=== PATIENT | male | born 1985 | race African-American/Black ===

== ENCOUNTER 2018-05-17 01:31 | Emergency (ER) | payer OTHER, MEDICAID ==
[2018-05-17] MEDS ORDERED: MIDAZOLAM HCL 50 MG/100 ML RTUINJ ONE (01:48)
[2018-05-17] MEDS ORDERED: MIDAZOLAM 2 MG/2 ML INJ ONE ×2 (01:52→02:02)
[2018-05-17] MEDS ORDERED: MIDAZOLAM HCL 50 MG/100 ML RTUINJ IV PRN (01:53)
--- NOTE | 2018-05-17 02:04 | ER Document Report ---
ED General - General Stated Complaint: TROUBLE BREATHING Notes: Patient is a 33-year-old male with a history of a previous brain tumor which was removed. He now has a HR PAYROLL COORDINATOR shunt in place. Streets via the father. Father says that tonight he started become dizzy and lightheaded. He felt as if he did not feel good. Father says sometimes this happens but usually the symptoms resolve very quickly. Tonight symptoms did not resolve and patient continue to progress to the point where he was unconscious and had very shallow breathing. When paramedics arrived patient was unresponsive and had what they described as extremely shallow and slow breathing which she described as almost agonal. They intubated the patient. Patient had pulses entire time. They did give him a little bit of Versed and fentanyl at time of intubation. They have not given any sedation medication since then. He is followed at [place] for the shunt. TRAVEL OUTSIDE OF THE [place] IN LAST 30 DAYS: No - Related Data Allergies/Adverse Reactions: No Known Allergies Allergy (Verified 05/17/18 04:16) Past Medical History - Social History Smoking Status: Never Smoker Frequency of alcohol use: None Drug Abuse: None Family History: Reviewed & Not Pertinent Malignancy Medical History: Reports Hx Brain Cancer Past Surgical History: Reports: Hx Abdominal Surgery - G-tube - Immunizations Hx Diphtheria, Pertussis, Tetanus Vaccination: Yes Review of Systems - Review of Systems -: Yes ROS unobtainable due to patient's medical condition - Patient is unresponsive. Physical Exam - Vital signs Vitals: Resp BP Pulse Ox 19 118/81 100 05/17/18 01:33 05/17/18 01:33 05/17/18 01:33 - Notes Notes: General Appearance: Well nourished, alert, cooperative, no acute distress, no obvious discomfort. Vitals: reviewed, See vital signs table. Head: no swelling or tenderness to the head Eyes: Pupils pinpoint likely related to the fentanyl the patient received. Mouth: No decreasd moisture Throat: Intubated Neck: Supple Lungs: No wheezing, No rales, No rhonci, No accessory muscle use, good air exchange bilaterally. Heart: Normal rate, Regular rythm, No murmur, no rub Abdomen: Normal BS, soft, No rigidity, No abdominal tenderness, No guarding, no rebound, no abdominal masses, no organomegaly Extremities: good pulses in all extremities, no swelling in the extremities, no edema. Skin: warm, dry, appropriate color, no rash Neuro: Patient has pinpoint pupils. He has no purposeful movement at this time. He is not taking breaths on his own. Course - Re-evaluation Re-evalutation: 05/17/18 02:04 After my initial immediate evaluation of the patient when he first got here we took him straight to CT scan of the CT scans head and neck. As we are getting him out of the CT scan he started to blink his eyes some. As a nurse's Saul to the trauma bay I did go and speak with the family. White female the room speaking to family the nurses inform me that he is starting have some purposeful movement. I went in the room and the patient's eyes are open and is looking around. When I say his name he looks over at me. He will wiggle his toes command. He will not move his upper extremities. Patient is not gagging on the tube but is obviously awake and aware of as being around him. I will get a little bit of Versed to help keep him comfortable while he is intubated. I am waiting for the read from the CT scan. Blood work has been ordered. Once results are back I will contact [facility] for transfer. 05/17/18 03:[address] Sung, neurosurgeon at [facility]. He agrees to accept the patient for transfer. He has no further recommendations at this time. Pateint's SpO2 has remained between 88 and 94%. Patient's father says his SpO2 is chronically low and that this is his normal. I tried to obtain an ABG but am unsuccessful. I gave a dose of decadron. I have started unasyn being that CXR shows evidence of aspiration. EKG shows some ST elevation, but no troponin elevation. All elevation is concave up. Findings on EKG can be caused by Pericaditis but patient's history is not consistent with that. Patient continues to have some occasional purpose movement requiring some sedation. 05/17/18 03:19 05/17/18 04:00 I did request air for transport however it is to foggy and no one is able to fly. I have been told that a critical care truck transport will be here in 2 and half hours. 05/17/18 04:02 Patient continues to do well on the vent. He does have some purposeful movement. Blood pressures remained stable. Heart rate is stable. We will continue closely monitor the patient until transported. Pupils remain pinpoint and equal in size. 05/17/18 04:13 05/17/18 05:31 Reevaluate the patient. He continues to remain comfortable on the vent. He will occasionally move his legs on his own. Pupils remain equal. 05/17/18 05:40 Transport team has arrived. I reevaluated the patient again. Patient remained stable for transport. Answered family and transport team's questions. Patient stable for transport. Dictation of this chart was performed using voice recognition software; therefore, there may be some unintended grammatical errors. - Vital Signs Vital signs: Temp Pulse Resp BP Pulse Ox 14 138/100 H 92 05/17/18 05:30 05/17/18 05:30 05/17/18 05:30 - Laboratory Result Diagrams: 05/17/18 02:25 05/17/18 01:55 Laboratory results interpreted by me: 05/17/18 05/17/18 05/17/18 01:55 02:25 03:20 MCV 102 H MCH 34.3 H Plt Count 104 L Seg Neutrophils % 82.1 H Lymphocytes % 5.8 L Eosinophils % 6.9 H Absolute Lymphocytes 0.3 L VBG pH 7.47 H VBG pCO2 64.6 H VBG HCO3 45.5 H Chloride 94 L Carbon Dioxide 37 H BUN 31 H Glucose 149 H AST 75 H Total Protein 8.4 H Urine Protein Urine Ascorbic Acid 05/17/18 03:25 MCV MCH Plt Count Seg Neutrophils % Lymphocytes % Eosinophils % Absolute Lymphocytes VBG pH VBG pCO2 VBG HCO3 Chloride Carbon Dioxide BUN Glucose AST Total Protein Urine Protein 100 H Urine Ascorbic Acid 40 H - EKG Interpretation by Me Additional EKG results interpreted by me: 05/17/18 02:10 EKG is reviewed and interpreted by me. EKG shows sinus rhythm with a rate of 87 bpm. Patient has almost diffuse concave up ST segment elevation. Looks very similar to the pericarditis. There is a bit of IA depression. No reciprocal ST segment depression except for just mild ST segment depression in leads aVR. These changes are new in comparison to old EKG from January 07, 2014. IA interval, QRS duration, QTc intervals are within normal range. Critical Care Note - Critical Care Note Total time excluding time spent on procedures (mins): 45 Comments: Local care time for this patient not including times spent on procedures was approximately 45 minutes due to frequent re-evaluations and management of vent and sedation. Frequent neurologic exams. Discharge - Discharge Clinical Impression: Unresponsive, Acute electrocardiogram changes, HR PAYROLL COORDINATOR (ventriculoperitoneal) shunt status Syncope Qualifiers: Syncope type: unspecified Qualified Code(s): R55 - Syncope and collapse Aspiration into airway Qualifiers: Encounter type: initial encounter Qualified Code(s): T17.908A - Unspecified foreign body in respiratory tract, part unspecified causing other injury, initial encounter Condition: Stable Disposition: [place] Referrals: FELICITAS MORALES MD [ACTIVE STAFF] - Follow up as needed
--- NOTE | 2018-05-17 02:06 | RADIOLOGY REPORT (SQ) ---
CLINICAL HISTORY: unresponsive, found down COMPARISON: None. TECHNIQUE: CT CERVICAL SPINE WITHOUT IV CONTRAST on 05/17/2018 1:35 AM HOGSHEAD OPENER This exam was performed according to our departmental dose-optimization program, which includes automated exposure control, adjustment of the mA and/or kV according to patient size and/or use of iterative reconstruction technique. FINDINGS: There is no acute fracture. Alignment is anatomic. There are ventral osteophytes at the C5-6 disc. There are postoperative changes of the occipital calvarium. There appears to have been resection of the posterior margins of C1 and C2. Vertebral body heights are preserved. Soft tissues are unremarkable. IMPRESSION: Mild degenerative and postoperative changes. No acute fracture.
--- NOTE | 2018-05-17 02:18 | RADIOLOGY REPORT (SQ) ---
EXAM DESCRIPTION: XR CHEST 1 VIEW COMPLETED DATE/TME: 05/17/2018 01:35 CLINICAL HISTORY: 33 years, Male, post intubation COMPARISON: 01/08/2014 NUMBER OF VIEWS: One TECHNIQUE: AP view of the chest LIMITATIONS: None. FINDINGS: The endotracheal tube terminates approximately 2 cm above the klever. There are bibasilar airspace opacities. No large pleural effusion or pneumothorax. The heart is normal in size. A DUPLICATOR PUNCH OPERATOR shunt catheter tracks along the right hemithorax. IMPRESSION: Satisfactory position of the endotracheal tube. Bibasilar airspace opacities which may represent aspiration or pneumonia. 2011 [employer]- All Rights Reserved
--- NOTE | 2018-05-17 02:19 | RADIOLOGY REPORT (SQ) ---
EXAM DESCRIPTION: CT HEAD WITHOUT IV CONTRAST COMPLETED DATE/TME: 05/17/2018 01:35 CLINICAL HISTORY: 33 years Male, unresponsive COMPARISON: None. TECHNIQUE: No contrast. Coronal and sagittal reformat. This exam was performed according to our departmental dose-optimization program, which includes automated exposure control, adjustment of the mA and/or kV according to patient size and/or use of iterative reconstruction technique. Limitation: Position. FINDINGS: No hemorrhage. Moderate right frontal encephalomalacia territory of the right middle cerebral artery. Small ventricular system. Right frontal ventricular catheter tip at the expected interventricular foramen 0.6 cm well-defined indeterminate calcification of the right paracentral posterior fossa probably involves the right cerebellar lobe may indicate a cavernous malformation or other neoplasm, surgical clips at the posterior cranial base, partial occipital craniotomy and partial resection/absence of the posterior ring at C1 and C2 of indeterminate age partially imaged. No mass, mass effect, or midline shift. Endotracheal tube partially imaged. Small right sphenoid mucocele. Brain and extra-axial structures appear otherwise intact. IMPRESSION: 1. Small ventricles. Ventriculostomy catheter. 2. Right frontal infarct. 3. Partial resection of the occipital skull and posterior C1 and C2 lamina, partially imaged. 4. 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 Cannot exclude other neoplasm. Recommend comparison with prior exams or routine contrast MRI of the brain. 5. Intubated.
[2018-05-17 02:32] LABS: ALANINE AMINOTRANSFERASE 44 U/L (21-72); ALBUMIN 3.9 g/dL (3.5-5.0); ALKALINE PHOSPHATASE 94 U/L (38-126); ANION GAP 12 (5-19); ASPARTATE AMINO TRANSFERASE 75 U/L (17-59); BILIRUBIN,DIRECT 0.3 mg/dL (0.0-0.4); BILIRUBIN,TOTAL 0.5 mg/dL (0.2-1.3); BLOOD UREA NITROGEN 31 mg/dL (7-20); CALCIUM 10.2 mg/dL (8.4-10.2); CARBON DIOXIDE 37 mmol/L (22-30); CHLORIDE 94 mmol/L (98-107); GLUCOSE 149 mg/dL (75-110); POTASSIUM 4.9 mmol/L (3.6-5.0); SODIUM 143.2 mmol/L (137-145); TOTAL PROTEIN 8.4 g/dL (6.3-8.2)
--- NOTE | 2018-05-17 02:39 | RADIOLOGY REPORT (SQ) ---
EXAM DESCRIPTION: XR ABDOMEN 1 VIEW (KUB) COMPLETED DATE/TME: 05/17/2018 01:55 CLINICAL HISTORY: 33 years Male, shunt, NG tube placement COMPARISON: None. NUMBER OF VIEWS/TECHNIQUE: 2 FINDINGS: Tip of a presumed enteric tube is seen at the level of the distal esophagus; consider advancement/replacement. Intestinal gas pattern is within normal limits. Moderate nonspecific gaseous prominence throughout the bowel. Peritoneal catheter tip at the right paracentral lateral abdomen. No suspicious calcification. Grossly intact skeletal structures. IMPRESSION: Tip of a presumed enteric tube is seen at the level of the distal esophagus; consider advancement/replacement.
[2018-05-17 02:40] LABS: ABSOLUTE EOSINOPHILS # (AUTO) 0.3 10^3/uL (0.0-0.6); ABSOLUTE LYMPHOCYTES (AUTO) 0.3 10^3/uL (0.5-4.7); ABSOLUTE MONOCYTES (AUTO) 0.2 10^3/uL (0.1-1.4); ABSOLUTE NEUT (AUTO) 3.9 10^3/uL (1.7-8.2); BASOPHILS % (AUTO) 0.2 % (0-2); EOSINOPHILS % (AUTO) 6.9 % (0-6); HEMATOCRIT 46.7 % (37.9-51.0); HEMOGLOBIN 15.8 g/dL (13.5-17.0); LYMPHOCYTES % (AUTO) 5.8 % (13-45); MEAN CORPUSCULAR HEMOGLOBIN 34.3 pg (27.0-33.4); MEAN CORPUSCULAR HGB CONC 33.8 g/dL (32.0-36.0); MEAN CORPUSCULAR VOLUME 102 fl (80-97); PLATELET COUNT 104 10^3/uL (150-450); RED CELL DISTRIBUTION WIDTH 13.5 % (11.5-14.0); SEGMENTED NEUTROPHILS % (AUTO) 82.1 % (42-78); TOTAL CELLS COUNTED % (AUTO) 100 %; WHITE BLOOD COUNT 4.8 10^3/uL (4.0-10.5)
[2018-05-17] MEDS ORDERED: DEXAMETHASONE SOD PHOS INJ 10 MG/1 ML VIAL IV ONE (02:43)
[2018-05-17] MEDS ORDERED: AMPICILLIN SOD/SULBACTAM 3 GM VIAL IV ONE (02:54)
[2018-05-17] MEDS ORDERED: MIDAZOLAM 2 MG/2 ML INJ IV ONE ×3 (03:30→03:31)
[2018-05-17 03:37] LABS: VENOUS BLOOD BASE EXCESS 17.7 mmol/L; VENOUS BLOOD HCO3 45.5 mmol/L (20-32); VENOUS BLOOD PCO2 64.6 mmHg (35-63); VENOUS BLOOD PH 7.47 (7.30-7.42)
[2018-05-17 03:56] LABS: APPEARANCE,URINE CLOUDY; BILIRUBIN,URINE NEGATIVE (NEGATIVE); COLOR,URINE YELLOW; GLUCOSE, URINE NEGATIVE (NEGATIVE); KETONES,URINE NEGATIVE (NEGATIVE); LEUKOCYTE ESTERASE,URINE NEGATIVE (NEGATIVE); NITRITE,URINE NEGATIVE (NEGATIVE); PROTEIN,URINE 100 mg/dL (NEGATIVE); URINE SPECIFIC GRAVITY 1.012; UROBILINOGEN,URINE NEGATIVE mg/dL (<2.0)
[2018-05-17 05:37] VITALS: BP 138/100
[2018-05-17] MEDS ORDERED: FENTANYL CITRATE INJ/PF 100 MCG/2 ML AMPUL IV ONE (05:42)
--- NOTE | 2018-05-17 14:00 | EKG REPORT ---
SEVERITY:- ABNORMAL ECG - SINUS RHYTHM ST ELEVATION SUGGESTS PERICARDITIS : Confirmed by: Sherin Sommer MD 17-May-2018 13:59:59
== END 2018-05-17 06:13 | disposition short-term general hospital (02) ==
LOC: ER 01:31
DX: R94.31 Abnormal electrocardiogram [ECG] [EKG] (principal); R06.9 Unspecified abnormalities of breathing; R55 Syncope and collapse; T17.900A Unspecified foreign body in respiratory tract, part unspecified causing asphyxiation, initial encounter; X58.XXXA Exposure to other specified factors, initial encounter; Y92.239 Unspecified place in hospital as the place of occurrence of the external cause; Z85.841 Personal history of malignant neoplasm of brain; Z98.2 Presence of cerebrospinal fluid drainage device
CPT/HCPCS: 93005; 99291; 51702; 96375; 96365; 36415; 85025; 80053; 81001; 84484; 82803; 71045; 74018; 70450; 72125; 94660; 93010; J2250 ×2; J3010; J0295; J1100; 82962

== ENCOUNTER 2018-09-25 13:52 | Emergency (ER) | payer OTHER, MEDICAID ==
--- NOTE | 2018-09-25 14:15 | ER Document Report ---
ED Medical Screen (RME) - General Chief Complaint: Displaced G-tube Stated Complaint: G TUBE COMING OUT Time Seen by Provider: 09/25/18 14:11 Primary Care Provider: NAHUM DYE MD [Primary Care Provider] - Follow up as needed Mode of Arrival: Wheelchair Information source: Patient, Relative Notes: Patient is a 33-year-old male who presents to the ED with his parents. Patient has a JG tube into his left abdomen that has become partially dislodged. Parents report this happened this morning. The balloon part of the tubing is exposed however there is still part of the tube in place. Patient and family deny any other symptoms to include recent illness, fever or any other complaints today. He is seen by Dr. Orozco. The tube was placed at [place]. I have greeted and performed a rapid initial assessment of this patient. A comprehensive ED assessment and evaluation of the patient, analysis of test results and completion of the medical decision making process will be conducted by additional ED providers. Dictation of this chart was performed using voice recognition software; therefore, there may be some unintended grammatical errors. TRAVEL OUTSIDE OF THE [place] IN LAST 30 DAYS: No - Related Data Allergies/Adverse Reactions: No Known Allergies Allergy (Verified 05/17/18 04:16) Past Medical History Renal/ Medical History: Denies: Hx Peritoneal Dialysis Malignancy Medical History: Reports Hx Brain Cancer Past Surgical History: Reports: Hx Abdominal Surgery - G-tube - Immunizations Hx Diphtheria, Pertussis, Tetanus Vaccination: Yes Doctor's Discharge - Discharge Referrals: NAHUM DYE MD [Primary Care Provider] - Follow up as needed
--- NOTE | 2018-09-25 15:17 | ER Document Report ---
ED GI/ - General Chief Complaint: Displaced G-tube Stated Complaint: G TUBE COMING OUT Time Seen by Provider: 09/25/18 14:11 Primary Care Provider: NAHUM DYE MD [Primary Care Provider] - Follow up as needed Mode of Arrival: Wheelchair Notes: 33-year-old male to emergency department chief complaint of feeding tube fell out. Patient has some brainstem glioma. Had feeding tube placed in May. Seems to have come out today. Placed by [facility]. TRAVEL OUTSIDE OF THE [place] IN LAST 30 DAYS: No - HPI Timing/Duration: Gradual Quality of pain: No pain Severity at maximum: Mild Severity in ED: Mild Pain Level: Denies - Related Data Allergies/Adverse Reactions: No Known Allergies Allergy (Verified 05/17/18 04:16) Past Medical History - General Information source: Patient, Relative - Social History Smoking Status: Unknown if Ever Smoked Frequency of alcohol use: None Drug Abuse: None Lives with: Parents Family History: Reviewed & Not Pertinent Patient has suicidal ideation: No Patient has homicidal ideation: No Renal/ Medical History: Denies: Hx Peritoneal Dialysis Malignancy Medical History: Reports Hx Brain Cancer Past Surgical History: Reports: Hx Abdominal Surgery - G-tube - Immunizations Hx Diphtheria, Pertussis, Tetanus Vaccination: Yes Review of Systems - Review of Systems Notes: Constitutional: denies: Chills, Diaphoresis, Fever, Malaise, Weakness EENT: denies: Eye discharge, Blurred vision, Tearing, Double vision, Nose congestion, Nose discharge, Throat swelling, Mouth pain Cardiovascular: denies: Palpitations, Heart racing, Orthopnea, Dyspnea, Chest pain Respiratory: denies: Cough, Hurts to breathe, Wheezing, Shortness of breath Gastrointestinal: denies: Abdominal pain, Diarrhea, Nausea, Vomiting, Black s tools, bright red blood in stool. Feeding tube issues reported. Genitourinary: denies: Burning, Dysuria, Discharge, Frequency, Flank pain, Hematuria Musculoskeletal: denies: Joint pain, Joint swelling, Muscle pain, Muscle stiffness, back pain Hematologic/Lymphatic: denies: Anemia, Easy bleeding, Easy bruising, Blood clots Neurological/Psychological: Sequelae of prior brain tumor and sequela of stroke. Left upper extremity and left lower extremity weakness. Can move the upper and lower extremities. Mild difficulty with speech. Skin: No lesions, no masses, no skin breakdown, no abscesses Physical Exam - Vital signs Interpretation: Normal - General General appearance: Appears well, Alert - HEENT Head: Normocephalic, Atraumatic Eyes: Normal Pupils: PERRL Neck: Other - Anterior neck scars from prior tracheostomy. - Respiratory Respiratory status: No respiratory distress Chest status: Nontender Breath sounds: Normal Chest palpation: Normal - Cardiovascular Rhythm: Regular Heart sounds: Normal auscultation Murmur: No - Abdominal Inspection: Normal, Other - There is a JG tube partially inserted through the abdomen. The balloon appears to be outside the skin. The JG tube site is clean dry and intact. No signs of infection. Distension: No distension Bowel sounds: Normal Tenderness: Nontender Organomegaly: No organomegaly - Extremities General upper extremity: Normal inspection, Nontender, Normal strength - In the right upper extremity, decreased strength in the left upper extremity. General lower extremity: Normal inspection, Nontender, Other - Normal strength in the right lower extremity, decreased strength in the left lower extremity - Neurological Cognition: Normal Orientation: AAOx4 [place] Coma Scale Eye Opening: Spontaneous [place] Coma Scale Verbal: Oriented [place] Coma Scale Motor: Obeys Commands [place] Coma Scale Total: 15 Speech: Dysarthria, Expressive aphasia - Psychological Associated symptoms: Normal affect, Normal mood - Skin Skin Temperature: Warm Skin Moisture: Dry Skin Color: Normal Course - Re-evaluation Re-evalutation: 09/25/18 16:03 The balloon was deflated and then reinflated with 7 mL's of normal saline. The balloon did not appear to hold. At that time the tube was lubricated. The balloon was deflated and then inserted back into the abdomen. The balloon was inflated without difficulty. Patient sent to radiology for evaluation. 09/25/18 16:36 Feeding tube placement performed. Radiology says tubes in good position. Will DC at this time. Discharge - Discharge Clinical Impression: Encounter for feeding tube placement Condition: Good Disposition: HOME, SELF-CARE Instructions: Transdermal Gastric Tube Placement ([facility]) Referrals: NAHUM DYE MD [Primary Care Provider] - Follow up as needed
--- NOTE | 2018-09-25 16:52 | RADIOLOGY REPORT (SQ) ---
EXAM DESCRIPTION: INJECT EXISTING/TUBE PLACEMENT; NOT FOR OR FLUORO TO 1 HR COMPLETED DATE/TIME: 09/25/2018 4:10 pm REASON FOR STUDY: jg tube check; TUBE CHECK COMPARISON: KUB 05/17/2018 FLUOROSCOPY TIME: 1.1 minutes 11 digital fluoroscopic images saved to PACS. TECHNIQUE: Injection of contrast through existing catheter. Fluoroscopic spot films saved to PACS d emonstrating final catheter position. LIMITATIONS: None. FINDINGS: Patient has a GJ tube in place which was manipulated by the emergency room physician. Con trast was injected to confirm GJ tube tip placement. Initial contrast injection of 15 mL of Omnipaque 300 was performed through the jejunal port. The J-t ube tip within the jejunum. Contrast flows from the tube tip into small bowel loops which are nondil ated. 15 mL of Omnipaque 300 was injected into the gastrostomy portion of the 2. There is filling of the g astric antrum and flow of contrast out the pylorus into the duodenum. Duodenum normal caliber. IMPRESSION: Gastrojejunostomy tube in good positioning COMMENT: Quality ID [id number]: Final reports for procedures using fluoroscopy that document radiation exp osure indices, or exposure time and number of fluorographic images (if radiation exposure indices are not available) TECHNICAL DOCUMENTATION: JOB ID: [id number] [employer]- All Rights Reserved Reading location - IP/workstation name: [email or web address]
[2018-09-25 16:58] VITALS: BP 104/55
== END 2018-09-25 17:07 | disposition home or self-care (01) ==
LOC: ER 13:52
DX: Z43.1 Encounter for attention to gastrostomy (principal)
CPT/HCPCS: 49465; 76000; 99283

== ENCOUNTER 2019-05-15 16:19 | Emergency (ER) | payer OTHER, MEDICAID ==
--- NOTE | 2019-05-15 16:31 | ER Document Report ---
ED Medical Screen (RME) - General Chief Complaint: Displaced G-tube Stated Complaint: G-TUBE ISSUE Time Seen by Provider: 05/15/19 16:22 Primary Care Provider: NAHUM DYE MD [Primary Care Provider] - Follow up as needed Mode of Arrival: Wheelchair Information source: Relative Notes: 34-year-old male presented to ED for displacement of his G-tube. According to the family member his G-tube is completely out and needs to be replaced. Family members who is with him states that he uses oxygen when he goes to sleep due to his sats normally being in the 70s. With a O2 checked on his earlobe I was able to get this set up to 94%. He was on room air with a sat at 94%. Mother states he had a G-tube for eating when he was 12 years old he was able to eat for a wh ile and then in June of this year they replaced the G-tube because of an aspiration issue and he is now using the G-tube again. He accidentally pulled the G-tube out just before coming into the emergency room. He has a 18 [place] G-tube with a 6 mm balloon that the father has brought in a bag with him. He states he is not in any pain at this time. I have greeted and performed a rapid initial assessment of this patient. A comprehensive ED assessment and evaluation of the patient, analysis of test results and completion of medical decision making process will be conducted by an additional ED providers. TRAVEL OUTSIDE OF THE [place] IN LAST 30 DAYS: No - Related Data Allergies/Adverse Reactions: No Known Allergies Allergy (Verified 05/17/18 04:16) Past Medical History Renal/ Medical History: Denies: Hx Peritoneal Dialysis Malignancy Medical History: Reports Hx Brain Cancer Past Surgical History: Reports: Hx Abdominal Surgery - G-tube - Immunizations Hx Diphtheria, Pertussis, Tetanus Vaccination: Yes Doctor's Discharge - Discharge Referrals: NAHUM DYE MD [Primary Care Provider] - Follow up as needed
--- NOTE | 2019-05-15 16:38 | ER Document Report ---
ED General - General Chief Complaint: Displaced G-tube Stated Complaint: G-TUBE ISSUE Time Seen by Provider: 05/15/19 16:22 Primary Care Provider: NAHUM DYE MD [Primary Care Provider] - Follow up as needed Mode of Arrival: Wheelchair Information source: Patient, Parent TRAVEL OUTSIDE OF THE [place] IN LAST 30 DAYS: No - HPI Notes: 34 male bib by dad, ambulatory, today immediately after his G tube (initially created almost yr ago-jul 11) was dislodged they think it was hung up on clothing. pt denies pain. they deny any other recent revisions or issues w/ g tube and feels. reportedly initially had G-J tube at 12 y/a for aspiration issues, but modified to Gastric only tube for cont feeding)--does not supplement w/ po intake at all since 12 y/o. deny any changes near pct site of tube such as swelling, redness pain. no wt loss or gain or difficulty w/ feeds. dad has watched videos before but hasn't really been educated on how to replace the tube. - Related Data Allergies/Adverse Reactions: No Known Allergies Allergy (Verified 05/15/19 17:50) Past Medical History - General Information source: Relative - Social History Smoking Status: Never Smoker Chew tobacco use (# tins/day): No Frequency of alcohol use: None Drug Abuse: None Family History: Reviewed & Not Pertinent Patient has suicidal ideation: No Patient has homicidal ideation: No Renal/ Medical History: Denies: Hx Peritoneal Dialysis Malignancy Medical History: Reports Hx Brain Cancer Past Surgical History: Reports: Hx Abdominal Surgery - G-tube - Immunizations Hx Diphtheria, Pertussis, Tetanus Vaccination: Yes Review of Systems - Review of Systems Constitutional: No symptoms reported EENT: No symptoms reported Cardiovascular: No symptoms reported Respiratory: No symptoms reported Gastrointestinal: No symptoms reported Genitourinary: No symptoms reported Male Genitourinary: No symptoms reported Musculoskeletal: No symptoms reported Skin: No symptoms reported Hematologic/Lymphatic: No symptoms reported Neurological/Psychological: No symptoms reported Physical Exam - Vital signs Vitals: Temp Pulse Resp BP Pulse Ox 98.0 F 88 20 94/63 L 93 05/15/19 16:27 05/15/19 16:27 05/15/19 16:27 05/15/19 16:27 05/15/19 16:27 Interpretation: Normal - Notes Notes: have brought w/ them 18F [employer] G tube. appears intact w/o damage. - General General appearance: Appears well, Alert In distress: None - HEENT Head: Normocephalic, Atraumatic Eyes: Normal. No: Pale conjunctiva, Scleral icterus Conjunctiva: Normal. No: Injected, Purulent discharge Pupils: PERRL Pharynx: Other - does have longstanding per dad/pt difficulty w/ phonation. difficulty to understand. - Respiratory Respiratory status: No respiratory distress Chest status: Nontender Breath sounds: Normal Chest palpation: Normal - Cardiovascular Rhythm: Regular Heart sounds: Normal auscultation Murmur: No - Abdominal Inspection: Normal, Other - pct insertion site at few cm L and few cm caudal to umbilicus w/o induration/drainage/redness/warmth, nontender around area. Distension: No distension Bowel sounds: Normal Tenderness: Nontender. No: Guarding, Rebound Organomegaly: No organomegaly - Back Back: Normal, Nontender - Extremities General upper extremity: Normal inspection, Nontender, Normal color, Normal ROM, Normal temperature General lower extremity: Normal inspection, Nontender, Normal color, Normal ROM, Normal temperature, Normal weight bearing. No: Iesha's sign - Neurological Neuro grossly intact: Yes Cognition: Normal Orientation: AAOx4 Dalia Coma Scale Eye Opening: Spontaneous Dalia Coma Scale Verbal: Oriented [place] Coma Scale Motor: Obeys Commands Dalia Coma Scale Total: 15 Speech: Normal Motor strength normal: LUE, RUE, LLE, RLE Sensory: Normal - Psychological Associated symptoms: Normal affect, Normal mood - Skin Skin Temperature: Warm Skin Moisture: Dry Skin Color: Normal Course - Re-evaluation Re-evalutation: 05/25/19 17:30 were able to find exact same type of 18F g tube after initialy examined pt. i was ultimately delayed in starting procedure 2/2 critical patient arrival. therefore at time started procedure was ~4 hr s/p initially dislodged. see procedure note for details. ultimately at most superficial aspect of tract couldn't advance 18F tube. therefore placed 14F [employer]. tolerated procedure well, orderd kub w/ gastroffin to confirm. after placement per [facility] support [facility] director's instructions filled balloon w/ sterile water 6mm. tube secure. did try to swap this at this point for the 16F as closer to his initial tube size, but still at initial segment unagle to advance. instructed call pcp first thing to alert we have downsized by two sizes to 14 F since there was some delay in replacing. XR study shows tip of tubing in stomach and dye filling stomach. instructed dad ok to use for feeding. pt still denying any pain, 05/25/19 17:31 - Vital Signs Vital signs: Temp Pulse Resp BP Pulse Ox 97.8 F 106 H 20 119/66 92 05/15/19 21:03 05/15/19 21:03 05/15/19 16:27 05/15/19 21:03 05/15/19 21:03 Procedures - Additional Procedures Gastric tube replacement Additional Procedures: Gastric tube replacement - checked integrity of balloon w/ rec volume (6mm) sterile water then deflated. couldn't advance the 18F at most superficial aspect of tract w/ slow firm twisting, pressure. checked balloon of 14F G tube also in good condition, this after a minute or so did advance through intial cm w/ some resistance then easily through remainder of tract. aspirated what appeared to be gastric contents. RN found litmus paper said "pH 1". therefore ordered kub w/ gastrograffin. this showed tip and dye in stomach. prior to this study did try going up one size to 16F, still like w/ 18F, unable to advance at most superficial aspect, therefore replaced 14F w/o diffiulty. was secure /not loose at skin, and not moving past balloon at skin inflated w/ 5mm sterile water per [facility] support [facility] director instructions. Discharge - Discharge Clinical Impression: Gastrojejunostomy tube dislodgement Condition: Good Disposition: HOME, SELF-CARE Additional Instructions: Please call primary care doctor tomorrow to discuss that we placed a 14 Uzbek G-tube here in the emergency department given that there was about 4 hours between the time it was displaced and when ER doctor was able to replace it. Referrals: NAHUM DYE MD [Primary Care Provider] - Follow up as needed
[2019-05-15 21:04] VITALS: BP 119/66
--- NOTE | 2019-05-15 21:06 | RADIOLOGY REPORT (SQ) ---
EXAM DESCRIPTION: [facility]: XR ABDOMEN 1 VIEW (KUB) CLINICAL HISTORY: 34 years Male, check g tube COMPARISON: None. FINDINGS: Bowel gas pattern is within normal limits, with no significant distention. No pneumatosis. Shunt tubing terminates in the right upper quadrant, unchanged. Gastrostomy is noted, tip in the stomach. There is contrast material in the stomach. No suspicious calcifications. Bony structures are unremarkable. IMPRESSION: 1. Gastrostomy tube tip in the stomach. No extravasation. 2. No bowel distention.
== END 2019-05-15 21:12 | disposition home or self-care (01) ==
LOC: ER 16:19
DX: Z43.1 Encounter for attention to gastrostomy (principal)
CPT/HCPCS: 74018; 99282

== ENCOUNTER 2019-05-16 21:51 | Emergency (ER) | payer OTHER, MEDICAID ==
--- NOTE | 2019-05-16 23:16 | ER Document Report ---
ED Fall - General Chief Complaint: Fall Stated Complaint: FALL/HEAD PAIN Time Seen by Provider: 05/16/19 22:37 Primary Care Provider: NAHUM DYE MD [Primary Care Provider] - Follow up as needed Notes: This 34-year-old man presents to the emergency department with a history of a fall from his chair tonight injuring his forehead. He denies loss of consciousness or neck pain. He does have a large area of swelling in the mid forehead area and ecchymosis under the right eye. 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 He has had a history of aspiration, COFFEE [employer]ENDER shunt, prior tracheostomy and is wheelchair-bound. TRAVEL OUTSIDE OF THE [place] IN LAST 30 DAYS: No - Related data Allergies/Adverse Reactions: No Known Allergies Allergy (Verified 05/15/19 17:50) Past Medical History - Social History Smoking Status: Never Smoker Frequency of alcohol use: None Family History: Reviewed & Not Pertinent Patient has suicidal ideation: No Patient has homicidal ideation: No Renal/ Medical History: Denies: Hx Peritoneal Dialysis Malignancy Medical History: Reports Hx Brain Cancer Past Surgical History: Reports: Hx Abdominal Surgery - G-tube - Immunizations Hx Diphtheria, Pertussis, Tetanus Vaccination: Yes Review of Systems - Review of Systems Notes: Constitutional: Negative for fever. HEENT: + Right forehead injury Cardiovascular: Negative for chest pain. Respiratory: Negative for shortness of breath. Gastrointestinal: Negative for vomiting Musculoskeletal: Negative for back pain. Skin: Negative for rash. Neurological: Negative no new weakness 10 point ROS negative except as marked above and in HPI. Physical Exam - Vital signs Vitals: Temp Pulse Resp BP Pulse Ox 98.0 F 94 16 135/90 H 94 05/16/19 22:02 05/16/19 22:02 05/16/19 22:02 05/16/19 22:02 05/16/19 22:02 - Notes Notes: PHYSICAL EXAMINATION: GENERAL: Chronically debilitated 34-year-old male in no acute distress HEAD: Large right-sided forehead hematoma with ecchymosis involving the upper eyelid, no crepitus. EYES: Pupils equal round and reactive to light, extraocular movements intact, sclera anicteric, conjunctiva are normal. ENT: nares patent, oropharynx clear without exudates. Moist mucous membranes. + Scar to the anterior neck chronic NECK: Normal range of motion, supple without lymphadenopathy LUNGS: Breath sounds clear to auscultation bilaterally and equal. No wheezes rales or rhonchi. HEART: Regular rate and rhythm without murmurs ABDOMEN: Soft, nontender, normoactive bowel sounds. No guarding, no rebound. No masses appreciated. EXTREMITIES: Atrophic changes NEUROLOGICAL: GCS 15, alert and talkative, smiling brightly and attentive Course - Re-evaluation Re-evalutation: 05/17/19 01:26 Patient with a history of a fall with a large hematoma, CT scan of the head reveals no intracranial hemorrhage, fracture cold pack was applied. Emergency department. I discussed the findings with the patient and his family and explained the hematoma will need intermittent application of a cold pack and might use Tylenol or ibuprofen for pain. Family voices understanding of that plan and are ready to discharged - Vital Signs Vital signs: Temp Pulse Resp BP Pulse Ox 98.0 F 94 16 135/90 H 94 05/16/19 22:02 05/16/19 22:02 05/16/19 22:02 05/16/19 22:02 05/16/19 22:02 - Diagnostic Test Radiology reviewed: Image reviewed, Reports reviewed - CT of the head, noncontrast: No intracranial hemorrhage, no calvarium fracture, chronic changes there is stable encephalomalacia along the right frontal lobe Discharge - Discharge Clinical Impression: Contusion of forehead Qualifiers: Encounter type: initial encounter Qualified Code(s): S00.83XA - Contusion of other part of head, initial encounter Contusion of face Qualifiers: Encounter type: initial encounter Qualified Code(s): S00.83XA - Contusion of other part of head, initial encounter Condition: Good Disposition: HOME, SELF-CARE Instructions: Hematoma ([facility]), Contusion ([facility]) Referrals: NAHUM DYE MD [Primary Care Provider] - Follow up as needed
--- NOTE | 2019-05-17 00:09 | RADIOLOGY REPORT (SQ) ---
EXAM DESCRIPTION: CT HEAD WITHOUT IV CONTRAST COMPLETED DATE/TME: 05/16/2019 23:13 CLINICAL HISTORY: 34 years, Male, Fall/head injury COMPARISON: 05/17/2016 TECHNIQUE: Axial CT images of the brain were obtained without contrast. Sagittal and coronal reformats were performed. [facility] 1043 Images stored on PACS. All CT scanners at this facility use dose modulation, iterative reconstruction, and/or weight based dosing when appropriate to reduce radiation dose to as low as reasonably achievable (ALARA). [facility]: Dose Right [facility]: CareDose [facility]: Dose Right [facility]: Teradose 4D [facility]: [employer] LIMITATIONS: None. FINDINGS: There is soft tissue swelling along the right frontal scalp and along the right preseptal soft tissues. There is no acute cortical infarct, hemorrhage, mass, edema, hydrocephalus, or extra-axial fluid collection. The right frontal approach ventricular shunt catheter again has its tip terminate near the septum pellucidum with slitlike ventricles. There is stable encephalomalacia along the right frontal lobe. The hong-white matter differentiation is preserved. Again noted is a coarse calcification near the right cerebellum. Again noted are changes of a suboccipital craniectomy with resection of the posterior arch of C1 and C2. No acute fracture is identified. The paranasal sinuses and mastoid air cells are clear. IMPRESSION: Soft tissue swelling along the right frontal scalp and right preseptal soft tissues. No acute intracranial abnormality. Stable positioning of the right frontal lobe with grossly stable slitlike ventricles. TECHNICAL DOCUMENTATION: Quality ID # [id number]: Final reports with documentation of one or more dose reduction techniques (e.g., Automated exposure control, adjustment of the mA and/or kV according to patient size, use of iterative reconstruction technique) copyright 2011 [employer]- All Rights Reserved
[2019-05-17 01:23] VITALS: BP 161/116
== END 2019-05-17 01:50 | disposition home or self-care (01) ==
LOC: ER 21:51
DX: S00.83XA Contusion of other part of head, initial encounter (principal); R51 Headache; W05.0XXA Fall from non-moving wheelchair, initial encounter
CPT/HCPCS: 70450; 99283

== ENCOUNTER 2019-07-04 17:05 | Emergency (ER) | payer OTHER, MEDICAID ==
--- NOTE | 2019-07-04 17:34 | ER Document Report ---
HPI - HPI Patient complains to provider of: gtube came out Time Seen by Provider: 07/04/19 17:25 Onset: Yesterday Onset/Duration: Sudden Quality of pain: No pain Context: Parents present with child for complaints of G-tube fell out yesterday. Father reports that it sometimes gets tangled in his close. Father reports that he did inflate the balloon but it still fell out this morning. [facility] not [facility] so they came to this emergency department. Denies abdominal pain. Denies other symptoms such as fever and vomiting. Past Medical History - General Information source: Patient, Parent - Social History Smoking Status: Never Smoker Frequency of alcohol use: None Drug Abuse: None Lives with: Family Family History: Reviewed & Not Pertinent Patient has suicidal ideation: No Patient has homicidal ideation: No Pulmonary Medical History: Reports: Hx Sleep Apnea Renal/ Medical History: Denies: Hx Peritoneal Dialysis Malignancy Medical History: Reports Hx Brain Cancer Past Surgical History: Reports: Hx Abdominal Surgery - G-tube - Immunizations Hx Diphtheria, Pertussis, Tetanus Vaccination: Yes Vertical Provider Document - CONSTITUTIONAL Agree With Documented VS: Yes Exam Limitations: No Limitations General Appearance: WD/WN, No Apparent Distress - INFECTION CONTROL TRAVEL OUTSIDE OF THE [place] IN LAST 30 DAYS: No - HEENT HEENT: Atraumatic - NECK Neck: Supple - RESPIRATORY Respiratory: No Respiratory Distress - GI/ABDOMEN Gastrointestinal: Abdomen Soft, Abdomen Non-Tender Notes: G-tube removed and the balloon was deflated. ELIAZAR Santa replaced with a new G- tube, balloon inflated flushes without problems - NEURO Level of Consciousness: Awake, Alert, Appropriate - DERM Integumentary: Warm, Dry Course - Re-evaluation Re-evalutation: 07/04/19 17:48 G-tube was replaced by ELIAZAR Santa without any problems. Parents were instructed on importance of follow-up with his primary care provider for recheck and referral to GI as indicated. They verbalized understanding. Discharge - Discharge Clinical Impression: gtube replacement Condition: Stable Disposition: HOME, SELF-CARE Additional Instructions: *You son has been treated for G-tube replacement *Follow up with his primary care provider within one week for recheck *Return to ED for worsening condition, changes, needs, concerns Referrals: NAHUM DYE MD [Primary Care Provider] - Follow up in 3-5 days
[2019-07-04 17:52] VITALS: BP 125/59
== END 2019-07-04 17:48 | disposition home or self-care (01) ==
LOC: ER 17:05
DX: Z43.1 Encounter for attention to gastrostomy (principal); Z85.841 Personal history of malignant neoplasm of brain
CPT/HCPCS: 99282

== ENCOUNTER 2019-08-28 19:11 | Emergency (ER) | payer OTHER, MEDICAID ==
--- NOTE | 2019-08-28 19:55 | ER Document Report ---
ED Medical Screen (RME) - General Chief Complaint: Problem with Feeding Tube Stated Complaint: PROBLEM WITH FEEDING TUBE Time Seen by Provider: 08/28/19 19:51 Primary Care Provider: NAHUM DYE MD [Primary Care Provider] - Follow up as needed Notes: HPI: 34-year-old male with G-tube presenting because G-tube caught on close while changing tonight and got pulled out. Denies abdominal pain or other complaints at this time I have greeted and performed a rapid initial assessment of this patient. A comprehensive ED assessment and evaluation of the patient, analysis of test results and completion of the medical decision making process will be conducted by additional ED providers PHYSICAL EXAMINATION: GENERAL: Well-appearing, well-nourished and in no acute distress. HEAD: Atraumatic, normocephalic. EYES: sclera anicteric, conjunctiva are normal. ENT: Moist mucous membranes. NECK: Normal range of motion LUNGS: Normal work of breathing HEART: 2+ radial pulses bilaterally ABD: limited by positioning for exam in triage. Abdomen is nontender to palpation. No bleeding from the G-tube site PSYCH: Normal mood, normal affect. SKIN: Warm, Dry, normal turgor, no rashes or lesions noted. TRAVEL OUTSIDE OF THE [place] IN LAST 30 DAYS: No - Related Data Allergies/Adverse Reactions: No Known Allergies Allergy (Verified 05/15/19 17:50) Past Medical History Pulmonary Medical History: Reports: Hx Sleep Apnea Renal/ Medical History: Denies: Hx Peritoneal Dialysis Malignancy Medical History: Reports Hx Brain Cancer Past Surgical History: Reports: Hx Abdominal Surgery - G-tube - Immunizations Hx Diphtheria, Pertussis, Tetanus Vaccination: Yes Physical Exam - Vital signs Vitals: Temp Pulse Resp BP Pulse Ox 98.4 F 94 16 137/88 H 89 L 08/28/19 19:39 08/28/19 19:39 08/28/19 19:39 08/28/19 19:39 08/28/19 19:39 Course - Vital Signs Vital signs: Temp Pulse Resp BP Pulse Ox 98.4 F 94 16 137/88 H 89 L 08/28/19 19:39 08/28/19 19:39 08/28/19 19:39 08/28/19 19:39 08/28/19 19:39 Doctor's Discharge - Discharge Referrals: NAHUM DYE MD [Primary Care Provider] - Follow up as needed
--- NOTE | 2019-08-28 21:48 | ER Document Report ---
ED General - General Chief Complaint: Problem with Feeding Tube Stated Complaint: PROBLEM WITH FEEDING TUBE Time Seen by Provider: 08/28/19 19:51 Primary Care Provider: NAHUM DYE MD [Primary Care Provider] - Follow up as needed Notes: Patient is a 34-year-old male that comes emergency department for chief complaint of his G-tube coming out. He states that the balloon appeared to have popped when this was accidentally pulled on and it came out at about 6:30 PM. Patient is dependent on this for all feedings/medications. Patient denies pain or bleeding from the area, he denies any other complaints. He states this is happened several times in the past. Family is at bedside. 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 He was hypoxic on arrival. No other complaints including abdominal pain, vomiting, fever, shortness of breath. TRAVEL OUTSIDE OF THE [place] IN LAST 30 DAYS: No - Related Data Allergies/Adverse Reactions: No Known Allergies Allergy (Verified 05/15/19 17:50) Past Medical History - General Information source: Patient - Social History Smoking Status: Never Smoker Frequency of alcohol use: None Drug Abuse: None Lives with: Family Family History: Reviewed & Not Pertinent Patient has suicidal ideation: No Patient has homicidal ideation: No Pulmonary Medical History: Reports: Hx Sleep Apnea Renal/ Medical History: Denies: Hx Peritoneal Dialysis Malignancy Medical History: Reports Hx Brain Cancer Past Surgical History: Reports: Hx Abdominal Surgery - G-tube - Immunizations Hx Diphtheria, Pertussis, Tetanus Vaccination: Yes Review of Systems - Review of Systems Constitutional: No symptoms reported EENT: No symptoms reported Cardiovascular: No symptoms reported Respiratory: No symptoms reported Gastrointestinal: See HPI Genitourinary: No symptoms reported Male Genitourinary: No symptoms reported Musculoskeletal: No symptoms reported Skin: No symptoms reported Hematologic/Lymphatic: No symptoms reported Neurological/Psychological: No symptoms reported Physical Exam - Vital signs Vitals: Temp Pulse Resp BP Pulse Ox 98.4 F 94 16 137/88 H 89 L 08/28/19 19:39 08/28/19 19:39 08/28/19 19:39 08/28/19 19:39 08/28/19 19:39 - Notes Notes: GENERAL: Frail, cachectic, however he is alert and responsive, well-appearing otherwise HEAD: Normocephalic, atraumatic. EYES: Pupils equal, round, and reactive to light. Extraocular movements intact. ENT: Oral mucosa moist, tongue midline. Oropharynx unremarkable. Airway patent. LUNGS: Clear to auscultation bilaterally, no wheezes, rales, or rhonchi. No respiratory distress. HEART: Regular rate and rhythm. No murmur ABDOMEN: There are 2 locations for ostomy tube, one appears old, slightly medial to this and inferior to this is a newer one, there is a small ostomy but no current tube in place. No tenderness, bleeding, or other concerning findings noted. BACK: no cervical, thoracic, lumbar midline tenderness. NEUROLOGICAL: Alert and oriented x3. Normal speech. Cranial nerves II through XII grossly intact. PSYCH: Normal affect, normal mood. SKIN: Warm, dry, normal turgor. No rashes or lesions noted. Course - Re-evaluation Re-evalutation: Unfortunately due to delay between coming to the emergency department and waiting at the emergency department when I evaluate the patient and attempted to clean and place a G-tube replacement with the same size as previously (14 [place]an) I was unable to because the ostomy was already almost completely closed. I called and spoke with Dr. Velarde, general surgeon on-call, he states he will come evaluate the patient in place a larger gastric tube. Dr. Velarde did place an 18-[place]ankan gastric tube, patient reevaluated afterwards, he has no complaints including no pain complaints, there is no bleeding, patient and family are very grateful. They will follow-up with gastroenterology. Discussed return precautions. They state understanding and agreement. - Vital Signs Vital signs: Temp Pulse Resp BP Pulse Ox 98.4 F 87 15 120/75 92 08/28/19 23:38 08/28/19 23:38 08/28/19 23:38 08/28/19 23:38 08/28/19 23:38 Discharge - Discharge Clinical Impression: Dislodged gastrostomy tube Condition: Stable Disposition: HOME, SELF-CARE Additional Instructions: Dr. Velarde has placed an 18 [place]ankan size gastrostomy tube in place with the one that came out. Call your heatset winder operator on Friday for close follow-up and additional management. Return for any concerning symptoms including severe pain, fever, if the tube stops working, or any other concerning or worsening symptoms. Referrals: NAHUM DYE MD [Primary Care Provider] - Follow up as needed
[2019-08-28] MEDS ORDERED: LIDOCAINE 1%/EPINEPHRINE INJ 20 ML VIAL INJ ONE (22:09)
--- NOTE | 2019-08-28 22:49 | PDOC CONSULTATION ---
Consultation Consult Date: 08/28/19 Provider Consulted: SURGICAL SURGICALIST Consult reason:: dislodged gastrostomy History of Present Illness Admission Date/PCP: NAHUM DYE MD Patient complains of: dislodged gastrostomy History of Present Illness: KAMRAN MORALES is a 34 year old male with a history of a brain tumor. The patient is dependent on a gastrostomy for feeding. He gastrostomy became dislodged approximately 4 hours ago. The patient presents the emergency department for replacement of his gastrostomy. Currently he denies chest pain, shortness of breath, fevers, chills, nausea, vomiting, melena, hematochezia, hematemesis, headache, blurry vision, abdominal pain, abdominal distention. He is accompanied by his family, who provides much of the medical history. Past Medical History Pulmonary Medical History: Reports: Sleep Apnea Malignancy Medical History: Reports: Brain Cancer Past Surgical History Past Surgical History: Reports: Other - Percutaneous endoscopic gastrostomy placement greater than 1 year ago. Social History Smoking Status: Never Smoker Electronic Cigarette use?: No Frequency of Alcohol Use: None Hx Recreational Drug Use: No Hx Prescription Drug Abuse: No Family History Family History: Reviewed & Not Pertinent Parental Family History Reviewed: Yes Children Family History Reviewed: Yes Sibling(s) Family History Reviewed.: Yes Medication/Allergy Home Medications: Cholecalciferol (Vitamin D3) [Vitamin D3 5000 unit Capsule] 5,000 unit PO Q7D 05/17/18 Allergies/Adverse Reactions: No Known Allergies Allergy (Verified 05/15/19 17:50) Review of Systems Constitutional: ABSENT: anorexia, chills, fatigue Eyes: ABSENT: visual disturbances Ears: ABSENT: hearing changes Nose, Mouth, and Throat: ABSENT: mouth pain, sore throat Cardiovascular: ABSENT: chest pain Respiratory: ABSENT: cough, dyspnea Gastrointestinal: ABSENT: abdominal pain, bloating, hematemesis, hematochezia, melena, nausea, vomiting Genitourinary: ABSENT: dysuria Musculoskeletal: ABSENT: back pain Integumentary: ABSENT: diaphoresis, pruritus, rash Neurological: ABSENT: confusion, convulsions, dizziness Psychiatric: ABSENT: anxiety, depression Endocrine: ABSENT: cold intolerance, heat intolerance Hematologic/Lymphatic: ABSENT: easy bleeding, easy bruising Physical Exam Vital Signs: Temp Pulse Resp BP Pulse Ox 98.4 F 94 16 137/88 H 89 L 08/28/19 19:39 08/28/19 19:39 08/28/19 19:39 08/28/19 19:39 08/28/19 19:39 Intake & Output 08/27/19 08/28/19 08/29/19 06:59 06:59 07:59 Weight 59.7 kg General appearance: PRESENT: no acute distress, cooperative Head exam: PRESENT: atraumatic, normocephalic Eye exam: PRESENT: PERRLA. ABSENT: scleral icterus Mouth exam: PRESENT: moist, neck supple Neck exam: ABSENT: meningismus, tenderness, thyromegaly, tracheal deviation Respiratory exam: PRESENT: unlabored. ABSENT: chest wall tenderness, wheezes Cardiovascular exam: PRESENT: RRR Vascular exam: PRESENT: normal capillary refill, pallor GI/Abdominal exam: PRESENT: soft, other - Gastrostomy site with mild amount of stricture. ABSENT: distended, firm, tenderness Rectal exam: PRESENT: deferred Extremities exam: ABSENT: clubbing Musculoskeletal exam: PRESENT: normal inspection Neurological exam: PRESENT: alert, awake Psychiatric exam: ABSENT: agitated, anxious Skin exam: ABSENT: cyanosis, erythema, jaundice Assessment & Plan - Diagnosis (1) Dislodged gastrostomy tube Is this a current diagnosis for this admission?: Yes - Plan Summary Plan Summary: This is a 34-year-old male with a dislodged gastrostomy. The patient is approximately 4 hours status post dislodgment. The gastrostomy site has slightly strictured. I will plan to dilate the strictured area and replaced the gastrostomy at the bedside tonight. The patient should be stable for discharge home after his gastrostomy has been placed. This has been discussed with the patient and his family at length. Risks/benefits discussed, informed consent obtained, and all questions answered.
--- NOTE | 2019-08-28 22:54 | Operative Report ---
Nonrecallable Operative Report DATE OF SURGERY: 08/28/19 PREOPERATIVE DIAGNOSIS: Dislodged gastrostomy POSTOPERATIVE DIAGNOSIS: 1. Dislodged gastrostomy. 2. Stricture at gastrostomy site OPERATION: 1. Percutaneous replacement of dislodged gastrostomy. 2. Manual dilation of gastrostomy site SURGEON: KYLEE DEMPSEY ANESTHESIA: Other - None TISSUE REMOVED OR ALTERED: None COMPLICATIONS: None apparent ESTIMATED BLOOD LOSS: Minimal PROCEDURE: Drains/implants: 18 Tristanian gastrostomy. Procedure in detail: After informed consent was obtained from the patient and his family, he was laid in the supine position in the emergency department. A large Katherin clamp was used to dilate the gastrostomy tract. This was done without difficulty. The 18 Tristanian gastrostomy then slid easily into the stomach, percutaneously through the skin. The balloon was inflated. The gastrostomy was found to have gastric contents within its lumen, confirming that it was within the stomach. The bumper was situated at 2 cm. A dressing was placed, and the procedure was then concluded. All sponge, instrument, and needle counts were correct x2. Condition: Stable.
[2019-08-28 23:43] VITALS: BP 120/75
== END 2019-08-28 23:38 | disposition home or self-care (01) ==
LOC: ER 19:11
PROC: 0DH63UZ Insertion of Feeding Device into Stomach, Percutaneous Approach (ICD-10-PCS; principal; 2019-08-28)
DX: K94.20 Gastrostomy complication, unspecified (principal); Z99.81 Dependence on supplemental oxygen; R09.02 Hypoxemia; Z85.841 Personal history of malignant neoplasm of brain
CPT/HCPCS: 99283; J3490

== ENCOUNTER 2020-01-29 19:57 | Emergency (ER) | payer OTHER, MEDICAID ==
--- NOTE | 2020-01-29 20:41 | ER Document Report ---
ED Medical Screen (RME) - General Chief Complaint: Other Stated Complaint: G TUBE PULLED OUT Time Seen by Provider: 01/29/20 20:31 Primary Care Provider: NAHUM DYE MD [Primary Care Provider] - Follow up as needed TRAVEL OUTSIDE OF THE [place] IN LAST 30 DAYS: No - HPI Notes: 01/29/20 20:37 34-year-old male presents to the emergency room due to G-tube that came out 2 days ago, the father states he put it back in, he called his doctor today and they advised him to come to the emergency room to have any new G-tube placed. Last G-tube that was placed was August where a 18 Dominican G-tube was placed. Father states that due to G-tube hanging out it comes dislodged often. Patient relies on the G-tube for his feedings and his medications. Denies any fevers or chills, denies any nausea vomiting, denies any abdominal pain. Patient is on 2 L nasal cannula intermittently for hypoxia I have greeted and performed a rapid initial assessment of this patient. A comprehensive ED assessment and evaluation of the patient, analysis of test results and completion of the medical decision making process will be conducted by additional ED providers. I have greeted and performed a rapid initial assessment of this patient. A comprehensive ED assessment and evaluation of the patient, analysis of test results and completion of the medical decision making process will be conducted by additional ED providers. PHYSICAL EXAMINATION: CV: s1, s2 regular LUNGS: No respiratory distress abd: all quadrants non-tender, G tube without drainage. - Related Data Allergies/Adverse Reactions: No Known Allergies Allergy (Verified 05/15/19 17:50) Past Medical History Pulmonary Medical History: Reports: Hx Sleep Apnea Renal/ Medical History: Denies: Hx Peritoneal Dialysis Malignancy Medical History: Reports Hx Brain Cancer Past Surgical History: Reports: Hx Abdominal Surgery - G-tube, Other - Percutaneous endoscopic gastrostomy placement greater than 1 year ago. - Immunizations Hx Diphtheria, Pertussis, Tetanus Vaccination: Yes Physical Exam - Vital signs Vitals: Temp Pulse Resp BP Pulse Ox 98.4 F 111 H 24 H 102/61 42 L 01/29/20 20:27 01/29/20 20:27 01/29/20 20:27 01/29/20 20:27 01/29/20 20:27 Course - Vital Signs Vital signs: Temp Pulse Resp BP Pulse Ox 98.4 F 111 H 24 H 102/61 42 L 01/29/20 20:27 01/29/20 20:27 01/29/20 20:27 01/29/20 20:27 01/29/20 20:27 Doctor's Discharge - Discharge Referrals: NAHUM DYE MD [Primary Care Provider] - Follow up as needed
--- NOTE | 2020-01-29 22:16 | ER Document Report ---
ED GI/ - General Chief Complaint: Displaced G-tube Stated Complaint: G TUBE PULLED OUT Time Seen by Provider: 01/29/20 20:31 Primary Care Provider: NAHUM DYE MD [Primary Care Provider] - Follow up as needed Mode of Arrival: Ambulatory Information source: Patient, Parent Notes: Patient Name: KAMRAN MORALES Date of : 89 Patient Status: Emergency Emergency Provider: CHRIS KOHLER JR Date: 01/29/20 20:34 Initialization Date: 01/29/20 20:34 ED Medical Screen (RME) - General Chief Complaint: Other Stated Complaint: G TUBE PULLED OUT Time Seen by Provider: 01/29/20 20:31 Primary Care Provider: NAHUM DYE MD [Primary Care Provider] - Follow up as needed TRAVEL OUTSIDE OF THE [place] IN LAST 30 DAYS: No - HPI Notes: 01/29/20 20:37 34-year-old male presents to the emergency room due to G-tube that came out 2 days ago, the father states he put it back in, he called his doctor today and they advised him to come to the emergency room to have any new G-tube placed. Last G-tube that was placed was August where a 18 [place] G-tube was placed. Father states that due to G-tube hanging out it comes dislodged often. Patient relies on the G-tube for his feedings and his medications. Denies any fevers or chills, denies any nausea vomiting, denies any abdominal pain. Patient is on 2 L nasal cannula intermittently for hypoxia I have greeted and performed a rapid initial assessment of this patient. A comprehensive ED assessment and evaluation of the patient, analysis of test results and completion of the medical decision making process will be conducted by additional ED providers. I have greeted and performed a rapid initial assessment of this patient. A comprehensive ED assessment and evaluation of the patient, analysis of test results and completion of the medical decision making process will be conducted by additional ED providers. PHYSICAL EXAMINATION: CV: s1, s2 regular LUNGS: No respiratory distress abd: all quadrants non-tender, G tube without drainage. MY NOTES 34-year-old black male arrives with his father of 18-gauge G-tube bulb becoming dislodged. Father reports he has had multiple in his lifetime. He had a brain tumor when he was 12 years old and has had G-tube placed for many many years. Patient is comfortable in the room and very observant. Father is very pleasant cooperative and reports he often replaces it himself as needed. Replacement G- tube was provided by staff and it was easily replaced by myself. 6 mL of saline was placed in bulb. Patient tolerated procedure well. TRAVEL OUTSIDE OF THE [place] IN LAST 30 DAYS: No - HPI Patient complains to provider of: Abdominal pain Onset: This morning Timing/Duration: Sudden, Persistent Quality of pain: No pain Pain Level: Denies Location: Epigastric - Related Data Allergies/Adverse Reactions: No Known Allergies Allergy (Verified 05/15/19 17:50) Past Medical History - General Information source: Patient - Social History Smoking Status: Never Smoker Cigarette use (# per day): No Chew tobacco use (# tins/day): No Smoking Education Provided: No Frequency of alcohol use: None Drug Abuse: None Lives with: Family Family History: Reviewed & Not Pertinent Patient has suicidal ideation: No Patient has homicidal ideation: No Pulmonary Medical History: Reports: Hx Sleep Apnea Renal/ Medical History: Denies: Hx Peritoneal Dialysis Malignancy Medical History: Reports Hx Brain Cancer Past Surgical History: Reports: Hx Abdominal Surgery - G-tube, Other - Percutaneous endoscopic gastrostomy placement greater than 1 year ago. - Immunizations Hx Diphtheria, Pertussis, Tetanus Vaccination: Yes Review of Systems - Review of Systems Constitutional: No symptoms reported EENT: No symptoms reported Cardiovascular: No symptoms reported Respiratory: No symptoms reported Gastrointestinal: See HPI, Other - G-tube removal. Genitourinary: No symptoms reported Male Genitourinary: No symptoms reported Musculoskeletal: No symptoms reported Skin: No symptoms reported Hematologic/Lymphatic: No symptoms reported Neurological/Psychological: No symptoms reported Physical Exam - Vital signs Vitals: Temp Pulse Resp BP Pulse Ox 98.4 F 111 H 24 H 102/61 100 01/29/20 20:27 01/29/20 20:27 01/29/20 20:27 01/29/20 20:27 01/29/20 20:27 Interpretation: Tachycardic, Tachypneic - HEENT Head: Normocephalic, Atraumatic Eyes: Normal Pupils: PERRL Mucous membranes: Normal Pharynx: Normal Neck: Normal - Respiratory Respiratory status: No respiratory distress Chest status: Nontender Breath sounds: Normal Chest palpation: Normal - Cardiovascular Rhythm: Regular Heart sounds: Normal auscultation Murmur: No - Abdominal Inspection: Normal Distension: No distension Bowel sounds: Normal Tenderness: Nontender Organomegaly: No organomegaly - Rectal Prostate: Other - deferred - Genitourinary Scrotum: Other - deferred - Back Back: Normal - Extremities General upper extremity: Normal inspection - back and General lower extremity: Normal inspection - Neurological Neuro grossly intact: Yes Cognition: Normal Orientation: AAOx4 [place]acle Coma Scale Eye Opening: Spontaneous Dalia Coma Scale Verbal: Oriented [place]acle Coma Scale Motor: Obeys Commands Pinnacle Coma Scale Total: 15 Speech: Normal Motor strength normal: LUE, RUE, LLE, RLE Sensory: Normal - Psychological Associated symptoms: Normal affect - Been seen yearly and all day long - Skin Skin Temperature: Warm - Been seen yearly and all day long is seen your name on everybody's chart Skin Moisture: Dry - 1 good daycare there Course - Vital Signs Vital signs: Temp Pulse Resp BP Pulse Ox 98.4 F 111 H 24 H 102/61 100 01/29/20 20:27 01/29/20 20:27 01/29/20 20:27 01/29/20 20:27 01/29/20 20:27 Procedures - Additional Procedures Gastric tube replacement Time performed: 22:12 Additional Procedures: Gastric tube replacement - 18 g with 6 ml bulb Discharge - Discharge Clinical Impression: Dislodged gastrostomy tube, g tube replacement Condition: Good Disposition: HOME, SELF-CARE Additional Instructions: Follow-up with personal doctor return to ER as needed flush her G-tube with diet Pepsi or Coca-Cola after each use. This should keep the tube clean until your next G-tube replacement. Referrals: NAHUM DYE MD [Primary Care Provider] - Follow up as needed
[2020-01-30 00:54] VITALS: BP 122/67
== END 2020-01-29 23:00 | disposition home or self-care (01) ==
LOC: ER 19:57
DX: Z43.1 Encounter for attention to gastrostomy (principal); R09.02 Hypoxemia; Z99.81 Dependence on supplemental oxygen; Z79.899 Other long term (current) drug therapy
CPT/HCPCS: 99282

== ENCOUNTER → 2020-04-25 | Day surgery (SDC) | payer OTHER, MEDICAID ==
--- NOTE | 2020-04-25 11:42 | Operative Report ---
Operative Report DATE OF SURGERY: 04/25/20 Operative Report: PEG tube changed 6cc of fluid removed from old tube old tube is withdrawn a 20F 4.5cm Halie tube is placed 6cc of fluid is placed and tube is now snug no complications PREOPERATIVE DIAGNOSIS: dysfunctional tube POSTOPERATIVE DIAGNOSIS: new tube placed OPERATION: PEG tube changed SURGEON: LYLY WELLS ANESTHESIA: LMAC TISSUE REMOVED OR ALTERED: none COMPLICATIONS: none INTRAOPERATIVE FINDINGS: none PROCEDURE: patient tolerated procedure well no complications patient is discharged in good condition follow up PRN
--- NOTE | 2020-05-03 10:02 | PDOC CONSULTATION ---
Consultation Consult Date: 04/25/20 Provider Consulted: LYLY WELLS Consult reason:: dysfunctional PEG tube History of Present Illness Admission Date/PCP: NAHUM DYE MD History of Present Illness: KAMRAN MORALES is a 35 year old male PEG tube needs to be changed from present tube to Gold PEG tube chin is obvious no leakage or infection noted Past Medical History Pulmonary Medical History: Reports: Sleep Apnea Malignancy Medical History: Reports: Brain Cancer Past Surgical History Past Surgical History: Reports: Other - Percutaneous endoscopic gastrostomy placement greater than 1 year ago. Social History Smoking Status: Never Smoker Frequency of Alcohol Use: None Hx Recreational Drug Use: No Hx Prescription Drug Abuse: No Family History Family History: Reviewed & Not Pertinent Parental Family History Reviewed: Yes Children Family History Reviewed: Unknown Sibling(s) Family History Reviewed.: Unknown Medication/Allergy Home Medications: Cholecalciferol (Vitamin D3) [Vitamin D3 5000 unit Capsule] 5,000 unit PO Q7D 05/17/18 Allergies/Adverse Reactions: No Known Allergies Allergy (Verified 05/15/19 17:50) Review of Systems Constitutional: ABSENT: fever(s), headache(s), night sweats, weakness Eyes: ABSENT: visual disturbances Ears: ABSENT: hearing changes Nose, Mouth, and Throat: ABSENT: mouth pain, sore throat Cardiovascular: ABSENT: edema, orthropnea Respiratory: ABSENT: dyspnea, hemoptysis Gastrointestinal: ABSENT: diarrhea, dysphagia, heartburn Genitourinary: ABSENT: dysuria, hematuria Musculoskeletal: ABSENT: deformity, joint swelling Neurological: ABSENT: syncope, tingling, tremor(s), vertigo Endocrine: ABSENT: polydipsia, polyphagia, polyuria Hematologic/Lymphatic: ABSENT: easy bruising Physical Exam General appearance: PRESENT: no acute distress Head exam: PRESENT: atraumatic, normocephalic Eye exam: PRESENT: EOMI, PERRLA. ABSENT: scleral icterus Mouth exam: PRESENT: moist, neck supple Throat exam: ABSENT: tonsillar exudate, tonsillogmegaly Neck exam: ABSENT: meningismus, tenderness, thyromegaly Respiratory exam: PRESENT: symmetrical, unlabored. ABSENT: tachypnea, wheezes Cardiovascular exam: PRESENT: RRR, +S1, +S2 GI/Abdominal exam: PRESENT: soft. ABSENT: rebound, rigid, tenderness Extremities exam: ABSENT: joint swelling Neurological exam: PRESENT: CN II-XII grossly intact Focused psych exam: ABSENT: restlessness Skin exam: PRESENT: normal color. ABSENT: mottled, urticaria, vesicles Assessment & Plan - Diagnosis (1) Dislodged gastrostomy tube Plan: will change out PEG tube Risks, benefits and alternatives discussed with father and will proceed - Time Time Spent: 30 to 50 Minutes
== END ==
LOC: END 11:17
PROVIDERS: ATTEND Internal Medicine Gastroenterology
DX: Z43.1 Encounter for attention to gastrostomy (principal); Z85.841 Personal history of malignant neoplasm of brain
CPT/HCPCS: 43762